=== PATIENT | male | born 1990 | race African-American/Black ===

== ENCOUNTER 2018-03-06 13:48 | Emergency (ER) | payer MEDICAID ==
[~2018-03-06] VITALS: Ht 190.5 cm; Wt 105.0 kg
[2018-03-06] MEDS ORDERED: IBUPROFEN 600MG TABLET PO ONE (16:15)
[2018-03-06 16:45] VITALS: BP 120/73
== END 2018-03-06 18:18 | disposition home or self-care (01) ==
LOC: ER 13:48
DX: M79.605 Pain in left leg (principal); V48.4XXA Person boarding or alighting a car injured in noncollision transport accident, initial encounter; Y93.89 Activity, other specified; Y92.89 Other specified places as the place of occurrence of the external cause
CPT/HCPCS: 73562; 73590; 73610; 99284

== ENCOUNTER 2018-12-06 08:47 | Emergency (ER) | payer MEDICAID, OTHER ==
[~2018-12-06] VITALS: Ht 190.5 cm; Wt 102.0 kg
[2018-12-06] MEDS ORDERED: ACETAMINOPHEN 325MG TABLET PO ONE ×2 (09:30→17:15)
[2018-12-06] MEDS ORDERED: CEFTRIAXONE 1 G PREMIX 50 ML IV ONE (15:15)
[2018-12-06] MEDS ORDERED: SODIUM CHLORIDE 0.9% 1000ML BAG (SEPSIS BOLUS) IV ONE (15:15)
[2018-12-06 15:34] LABS: BASOPHILS % 0.5 % (0.0-2.0); HEMATOCRIT. 45.5 % (42.0-52.0); HEMOGLOBIN. 15.5 g/dL (14.0-18.0); LYMPHOCYTES % 10.4 % (20.0-50.0); MEAN CORPUSCULAR HEMOGLOBIN 31.4 pg (28.0-32.0); MONOCYTES % 11.2 % (2.0-8.0); NEUTROPHILS % 77.9 % (40.0-76.0); PLATELET 245 x1000/uL (130-400); RED BLOOD CELL COUNT 4.94 mill/uL (4.7-6.1)
[2018-12-06 15:38] LABS: CHLORIDE 101 mEq/L (98-107)
[2018-12-06 15:40] LABS: PARTIAL THROMBOPLASTIN TIME 32.2 sec (23.4-31.0); PROTHROMBIN TIME 10.7 sec (9.6-11.0)
[2018-12-06 16:26] LABS: CLARITY URINE CLEAR (CLEAR); COLOR URINE YELLOW (YELLOW); KETONES URINE TRACE (NEGATIVE); LEUKOCYTE ESTERASE URINE NEGATIVE (NEGATIVE); NITRITE URINE NEGATIVE (NEGATIVE); OCCULT BLOOD URINE NEGATIVE (NEGATIVE); PH URINE 6.5 (4.5-8.0); PROTEIN URINE TRACE (NEGATIVE); SPECIFIC GRAVITY URINE 1.027 (1.005-1.030); UROBILINOGEN URINE 0.2 E.U./dL (0.2-1.0)
[2018-12-06] MEDS ORDERED: KETOROLAC 30MG/ML VIAL IV ONE (16:30)
[2018-12-06] MEDS ORDERED: AMOXICILLIN/POTASSIUM CLAVULANATE 875/125MG TAB PO ONE (21:45)
[2018-12-06 23:16] VITALS: BP 147/80
== END 2018-12-06 23:20 | disposition home or self-care (01) ==
LOC: ER 08:47
DX: J32.9 Chronic sinusitis, unspecified (principal)
CPT/HCPCS: 36415; 71045; 76705; 80053; 81003; 83605; 85025; 85610; 85730; 87040; 87070; 87430; 87804; 96361; 96365; 99284; J0696; J1885; J7030

== ENCOUNTER 2019-06-17 09:33 | Emergency (ER) | payer SELFPAY ==
[~2019-06-17] VITALS: Ht 188 cm; Wt 105.0 kg
[2019-06-17] MEDS ORDERED: SODIUM CHLORIDE 0.9% 1,000 ML IV ONE (11:07)
[2019-06-17 11:32] LABS: HEMATOCRIT. 47.2 % (42.0-52.0); HEMOGLOBIN. 16.6 g/dL (14.0-18.0); LYMPHOCYTES % 41.3 % (20.0-50.0); MEAN CORPUSCULAR HEMOGLOBIN 32.5 pg (28.0-32.0); MEAN CORPUSCULAR VOLUME 92.6 fL (80.0-94.0); MONOCYTES % 8.4 % (2.0-8.0); NEUTROPHILS % 45.3 % (40.0-76.0); PLATELET 309 x1000/uL (130-400); RED CELL DISTRIBUTION WIDTH 13.1 % (11.6-14.6)
[2019-06-17 11:37] LABS: CHLORIDE 105 mEq/L (98-107)
[2019-06-17 11:38] LABS: CLARITY URINE CLEAR (CLEAR); COLOR URINE YELLOW (YELLOW); KETONES URINE NEGATIVE (NEGATIVE); LEUKOCYTE ESTERASE URINE NEGATIVE (NEGATIVE); NITRITE URINE NEGATIVE (NEGATIVE); OCCULT BLOOD URINE NEGATIVE (NEGATIVE); PROTEIN URINE 1+ (NEGATIVE); SPECIFIC GRAVITY URINE 1.023 (1.005-1.030); UROBILINOGEN URINE 0.2 E.U./dL (0.2-1.0)
[2019-06-17 11:39] LABS: INR 0.9; PROTHROMBIN TIME 9.7 sec (9.6-11.0)
[2019-06-17] MEDS ORDERED: IOHEXOL-300 100 ML BOTTLE ONE (13:46)
[2019-06-17 14:22] VITALS: BP 119/74
== END 2019-06-17 14:36 | disposition home or self-care (01) ==
LOC: ER 09:46
DX: K62.5 Hemorrhage of anus and rectum (principal); R19.7 Diarrhea, unspecified; F12.10 Cannabis abuse, uncomplicated; Z88.8 Allergy status to other drugs, medicaments and biological substances
CPT/HCPCS: 36415; 74177; 80053; 81003; 82270; 85025; 85610; 96360; 99284; J7030; Q9967; Z7610

== ENCOUNTER 2023-12-10 15:44 | Emergency (ER) | payer MEDICAID, OTHER ==
[~2023-12-10] VITALS: Ht 188 cm; Wt 102.0 kg
[2023-12-10 16:48] VITALS: O2SAT 100
[2023-12-10 17:31] VITALS: BP 122/62; PULSE 84; RESP 18; TEMP 98.5
== END 2023-12-10 18:04 | disposition home or self-care (01) ==
LOC: ER 15:44
DX: S63.501A Unspecified sprain of right wrist, initial encounter (principal); F12.10 Cannabis abuse, uncomplicated; W18.39XA Other fall on same level, initial encounter; Y93.89 Activity, other specified; Y92.89 Other specified places as the place of occurrence of the external cause; Y99.8 Other external cause status
CPT/HCPCS: 73110; 99283